=== PATIENT | male | born 1960 | race Caucasian/White ===

== ENCOUNTER 2017-12-19 07:38 | Emergency (ER) | payer BC ==
[2017-12-19] MEDS ORDERED: Lidocaine 2% Viscous Solution 15 ML Cup PO ONE (08:07)
--- NOTE | 2017-12-19 08:07 | EDM.PDOC ---
ED HPI GENERAL MEDICAL PROBLEM - General Chief Complaint: ENT Problem Stated Complaint: SORE THROAT Time Seen by Provider: 12/19/17 07:53 - History of Present Illness INITIAL COMMENTS - FREE TEXT/NARRATIVE: HISTORY AND PHYSICAL: History of present illness: The patient is a healthy 57-year-old male who presents with a 1-1/2 day history of sore throat. He says that initially the symptoms started as a "cold" with an occasional cough a slight sore throat and feeling feverish and having some body aches. Now he is most focused on his throat because it is painful to swallow and speak but he is able to eat and drink. He has no headache or neck pain no chest pain or shortness of breath but does have a runny nose and a slight cough. He's had no nausea or vomiting and no diarrhea. The patient did not get his flu shot this year Review of systems: As per history of present illness and below otherwise all systems reviewed and negative. Past medical history: As per history of present illness and as reviewed below otherwise noncontributory. Surgical history: As per history of present illness and as reviewed below otherwise noncontributory. Social history: No reported history of drug or alcohol abuse. Family history: As per history of present illness and as reviewed below otherwise noncontributory. Physical exam: Gen.: Well-developed well-nourished male who is nontoxic and vital signs been reviewed by me. Voice is slightly nasal in raspy but there is no stridor or muffled voice HEENT: Atraumatic, normocephalic, pupils reactive, negative for conjunctival pallor or scleral icterus, mucous membranes moist, throat clear of exudates but there is oropharyngeal erythema, there is anterior cervical adenopathy but no posterior adenopathy or nuchal rigidity, neck supple, nontender, trachea midline. Lungs: Clear to auscultation, breath sounds equal bilaterally, chest nontender. No wheezing stridor or work of breathing Heart: S1S2, regular rate and rhythm no overt murmurs Abdomen: Soft, nondistended, nontender. NABS Pelvis: Deferred Genitourinary: Deferred. Rectal: Deferred. Extremities: Atraumatic, negative for cords or calf pain. Neurovascular unremarkable. Neuro: Awake, alert, oriented. Cranial nerves II through XII unremarkable. Cerebellum unremarkable. Motor and sensory unremarkable throughout. Exam nonfocal. Diagnostics: Influenza rapid strep Therapeutics: Viscous lidocaine Impression: Viral Pharyngitis/viral illness Definitive disposition and diagnosis as appropriate pending reevaluation and review of above. throat Pain Score (Numeric/FACES): 7 - Related Data Allergies Allergy/AdvReac Type Severity Reaction Status Date / Time No Known Allergies Allergy Verified 12/19/17 07:46 Home Meds: Home Meds Naproxen 500 mg PO BID 12/19/17 [History] Past Medical History - Past Health History Medical/Surgical History: Denies Medical/Surgical History Social & Family History - Family History Family Medical History: Noncontributory - Tobacco Use Smoking Status *Q: Never Smoker - Caffeine Use Caffeine Use: Reports: Coffee - Recreational Drug Use Recreational Drug Use: No ED ROS GENERAL - Review of Systems Review Of Systems: ROS reveals no pertinent complaints other than HPI. ED EXAM, GENERAL - Physical Exam Exam: See Below (See dictation) Course - Vital Signs Last Recorded V/S: Last Vital Signs Temp 35.9 C 12/19/17 07:47 Pulse 101 H 12/19/17 07:47 Resp 18 12/19/17 07:47 BP 151/67 H 12/19/17 07:47 Pulse Ox 98 12/19/17 07:47 - Orders/Labs/Meds Orders: Active Orders 24 hr Category Date Time Status CULTURE STREP A CONFIRMATION [RM] Stat Lab 12/19/17 08:00 Results STREP SCRN A RAPID W CULT CONF [RM] Stat Lab 12/19/17 08:00 Results Meds: Medications Discontinued Medications Generic Name Dose Route Start Last Admin Trade Name Lianne PRN Reason Stop Dose Admin Lidocaine HCl 15 ml 12/19/17 08:07 12/19/17 08:24 Xylocaine 2% Viscous PO 12/19/17 08:08 15 ml ONETIME ONE Administration Departure - Departure Time of Disposition: 08:34 Disposition: Home, Self-Care 01 Condition: Good Clinical Impression: Viral pharyngitis, Viral illness - Discharge Information Referrals: PCP,None [Primary Care Provider] - Forms: ED Department Discharge Additional Instructions: The following information is given to patients seen in the emergency department who are being discharged to home. This information is to outline your options for follow-up care. We provide all patients seen in our emergency department with a follow-up referral. The need for follow-up, as well as the timing and circumstances, are variable depending upon the specifics of your emergency department visit. If you don't have a primary care physician on staff, we will provide you with a referral. We always advise you to contact your personal physician following an emergency department visit to inform them of the circumstance of the visit and for follow-up with them and/or the need for any referrals to a consulting specialist. The emergency department will also refer you to a specialist when appropriate. This referral assures that you have the opportunity for followup care with a specialist. All of these measure are taken in an effort to provide you with optimal care, which includes your followup. Under all circumstances we always encourage you to contact your private physician who remains a resource for coordinating your care. When calling for followup care, please make the office aware that this follow-up is from your recent emergency room visit. If for any reason you are refused follow-up, please contact the [facility] emergency department at and ask to speak to the emergency department charge nurse. [facility] Primary care- Internal Medicine and Family [address] [address] Please call and connect with one of our clinic providers for follow-up care as we discussed and return to ER as needed and as discussed. Please push hydration and use [id number] products for pain and fevers and also use lozenges to help with your throat pain. - My Orders Last 24 Hours: My Active Orders 12/19/17 08:00 CULTURE STREP A CONFIRMATION [RM] Stat STREP SCRN A RAPID W CULT CONF [RM] Stat - Assessment/Plan Last 24 Hours: My Active Orders 12/19/17 08:00 CULTURE STREP A CONFIRMATION [RM] Stat STREP SCRN A RAPID W CULT CONF [RM] Stat
== END 2017-12-19 08:43 | disposition home or self-care (01) ==
LOC: MW.ED 07:38
DX: J02.8 Acute pharyngitis due to other specified organisms (principal); B97.89 Other viral agents as the cause of diseases classified elsewhere
CPT/HCPCS: 87081; 87804; 87880; 99283; A9270